=== PATIENT | female | born 1975 | race Caucasian/White ===

== ENCOUNTER 2018-01-22 22:14 | Emergency (ER) | payer MEDICAID ==
--- NOTE | 2018-01-22 22:54 | EDPHY ---
General Time Seen by Provider: 01/22/18 22:51 Narrative: CHIEF COMPLAINT: Rash, possible allergic reaction HISTORY OF PRESENT ILLNESS: Patient complains of suspected food allergy. She reports 2 months history of rash that she suspects is due to gluten insensitivity. She has a documented gluten allergy with formal diagnosis. She has developed a rash that has become very pruritic. The rash is been present on and off for the past 2 months but never fully resolved. Over the past 3 weeks this significantly worsen. Involves the neck, chest, shoulders and now her eyelids. She has no oral complaints. No difficulty breathing, swallowing. No drooling. No swelling of the lips or tongue. She has tried or herbal remedies, acupuncture and occasional Benadryl. Herbal remedies have been somewhat on helpful. The antihistamines have constipated her. No other associated complaints or modifying factors. REVIEW OF SYSTEMS: Ten systems reviewed and are negative unless otherwise noted in the HPI PCP: None currently SPECIALISTS: Acupuncture PAST MEDICAL HISTORY: Gluten sensitivity PAST SURGICAL HISTORY: No recent surgeries SOCIAL HISTORY: Occasional smoker and occasional alcohol intake. No drug use. Works as a massage therapist. FAMILY HISTORY: Noncontributory EXAMINATION General Appearance: Alert, no distress Head: normocephalic, atraumatic Eyes: Pupils equal and round, no conjunctival pallor or injection. There is urticaria to the eyelids ENT, Mouth: Mucous membranes moist. Uvula is midline. The airway is widely patent no stridor. No drooling. No edema of the pharynx, lips or tongue. Neck: Normal inspection, supple, non-tender. no meningeal signs Respiratory: Lungs are clear to auscultation. No wheezing, rhonchi or crackles Cardiovascular: Regular rate and rhythm. No murmur Back: non-tender, no bony abnormalities Neurological: GCS 15. A&O, nonfocal, normal gait Skin: Warm and dry. Urticaria to the neck, shoulders and chest. Extremities: Nontender, no pedal edema. Symmetric range of motion Psychiatric: Mood and affect normal DIFFERENTIAL DIAGNOSES: Including but not limited to food allergy, drug allergy, allergic reaction, anaphylaxis, urticaria, hives MDM: 10:55 p.m. Likely food allergy that is ongoing. I do not appreciate any evidence of angioedema or anaphylaxis. She does have a moderately pruritic rash. No compromise of the airway. I do not feel she warrants IV placement or epinephrine at this time. We discussed treatment with Decadron here and a repeat dose tomorrow. We discuss hydroxyzine and Pepcid as needed. I recommend MiraLax and/or magnesium citrate should she become constipated. 11:40 p.m. Patient re-evaluated. She has received Decadron by mouth. She will be sent home to take the hydroxyzine there because she drove here. She will then take hydroxyzine and Pepcid tonight. Instructed to take a 2nd dose of Decadron tomorrow morning and continue with antihistamines as needed. Strict ED precautions for worsening rash, swelling of the eyelids or phase, swelling of the lips or tongue, difficulty breathing or swallowing. I provided the on-call primary care physician for to follow up with as a new patient. She is comfortable this plan and discharged home stable condition. SUPERVISION: Patient was independently examined, but I discussed the case with my secondary supervising physician Dr. Mae - History Smoking Status: Never smoked - Objective Vital Signs: Initial Vital Signs Temperature (C) 98.2 F 01/22/18 22:21 Heart Rate 90 01/22/18 22:21 Respiratory Rate 20 01/22/18 22:21 Blood Pressure 150/110 H 01/22/18 22:21 O2 Sat (%) 99 01/22/18 22:21 O2 Delivery Mode Room Air Allergies/Adverse Reactions: gluten Allergy (Verified 01/22/18 22:20) Home Medications: Medication Instructions Recorded Dexamethasone [Decadron 4 MG (*)] 8 mg PO DAILY #2 tab 01/22/18 hydrOXYzine HCL [Hydroxyzine HCl] 50 mg PO Q6-8PRN PRN #11 tablet 01/22/18 Departure - Departure Disposition: Home, Routine, Self-Care Clinical Impression: Food allergic dermatitis, Urticaria Condition: Good Instructions: Food Allergy (ED), Anaphylaxis (ED) Additional Instructions: 1. Decadron 8 mg by mouth x1 on Tuesday 2. Hydroxyzine as prescribed every 6-8 hours as needed for itching 3. Pepcid 20 mg twice daily for 3-5 days as needed 4. Contact the on-call primary care physician as provided to established as a new patient 5. ED precautions as discussed Referrals: Breonna Okeefe MD [Medical Doctor] - As per Instructions Prescriptions: Dexamethasone [Decadron 4 MG (*)] 8 mg PO DAILY #2 tab hydrOXYzine HCL [Hydroxyzine HCl] 50 mg PO Q6-8PRN PRN #11 tablet PRN Reason: Itching
[2018-01-22] MEDS ORDERED: hydrOXYzine HCL 50 MG TAB PO ONE (23:18)
[2018-01-22] MEDS ORDERED: DEXAMETHASONE 4 MG TAB PO ONE (23:18)
[2018-01-22 23:50] VITALS: BP 122/76; PULSE 88; RESP 16; TEMP 97.9; O2SAT 97
== END 2018-01-22 23:54 | disposition home or self-care (01) ==
DX: L27.2 Dermatitis due to ingested food (principal); L50.0 Allergic urticaria